=== PATIENT | male | born 1940 | race Caucasian/White ===

== ENCOUNTER → 2023-08-08 07:01 | Outpatient (REF) | payer MEDICARE, OTHER, SELFPAY ==
[2023-08-08 09:17] LABS: ALT (SGPT) 36 U/L (0-50); AST (SGOT) 35 U/L (17-59); Albumin 4.3 g/dl (3.5-5.0); Alkaline Phosphatase 66 U/L (38-126); Blood Urea Nitrogen 25 mg/dl (9-20); Calcium 10.4 mg/dl (8.4-10.2); Carbon Dioxide 28 mmol/L (22-30); Chloride 101 mmol/L (98-107); Glucose 99 mg/dl (70-99); HDL Cholesterol 54 mg/dl; LDL Cholesterol, Calculated 57 mg/dl; Potassium 4.4 mmol/L (3.5-5.1); Sodium 139 mmol/L (135-145); Total Bilirubin 0.7 mg/dl (0.2-1.3); Total Cholesterol 139 mg/dl (50-199); Total Protein 6.8 g/dl (6.3-8.2); Triglyceride 140 mg/dl (10-149); Very Low Density Lipoprotein 28 mg/dl (0-30); eGFR > 60.00
[2023-08-08 09:38] LABS: Glycohemoglobin (HgbA1c) 5.9 % (4.0-5.6)
[2023-08-08 09:41] LABS: PSA, Total - Diagnostic 1.56 ng/ml (0.0-4.0)
== END ==
LOC: HWLAB 07:01
PROVIDERS: ATTENDING PHYSICIAN Internal Medicine
DX: E78.5 Hyperlipidemia, unspecified (principal); R73.01 Impaired fasting glucose; Z85.46 Personal history of malignant neoplasm of prostate
CPT/HCPCS: 36415; 80053; 80061; 83036; 84153

== ENCOUNTER → 2023-09-04 09:06 | Outpatient (REF) | payer MEDICARE, OTHER, SELFPAY ==
[2023-09-04 12:23] LABS: Urine Albumin Negative (Neg - Trace); Urine Bilirubin Negative (Negative); Urine Character Clear (Clear); Urine Color Yellow; Urine Glucose Negative (Negative); Urine Ketone Negative (Negative); Urine Leukocyte Negative (Negative); Urine Nitrite Negative (Negative); Urine Occult Blood Negative (Negative); Urine Urobilinogen Negative (Neg - 1+)
== END ==
LOC: HWLAB 09:06
PROVIDERS: ATTENDING PHYSICIAN Internal Medicine
DX: R41.82 Altered mental status, unspecified (principal)
CPT/HCPCS: 81003; 87086

== ENCOUNTER → 2023-10-07 11:28 | Outpatient (REF) | payer MEDICARE, OTHER, SELFPAY ==
[2023-10-07 12:56] LABS: % Basophils 0.7 % (0-2); % Eosinophils 1.2 % (0-6); % Immature Granulocytes 0.6 % (0-0.5); % Lymphocytes 18.9 % (20.5-51.1); % Monocytes 6.4 % (1.7-9.3); % Neutrophils 72.2 % (42.2-75.2); Absolute Basophils 0.1 10^3/uL (0-0.2); Absolute Eosinophils 0.1 10^3/uL (0-0.7); Absolute Lymphocytes 1.4 10^3/uL (1.2-3.4); Absolute Monocytes 0.5 10^3/uL (0.1-0.6); Absolute Neutrophils 5.2 10^3/uL (1.4-6.5); Mean Corp Hgb Conc. 33.3 g/dL (33.0-37.0); Mean Corpuscular Hgb 31.5 pg (27.0-31.0); Mean Corpuscular Volume 94.5 fL (80.0-94.0); Mean Platelet Volume 10.8 fL (7.4-10.4); Nucleated Red Blood Cells % 0 % (-); Platelet Count 209 10^3/uL (130-400); Red Blood Cell Count 4.76 10^6/uL (4.70-6.10); Red Cell Dist. Width 13.3 % (11.5-14.5); White Blood Cell Count 7.2 10^3/uL (4.8-10.8)
[2023-10-07 13:13] LABS: Urine Albumin Trace (Neg - Trace); Urine Bilirubin Negative (Negative); Urine Character Clear (Clear); Urine Color Yellow; Urine Glucose Negative (Negative); Urine Ketone Negative (Negative); Urine Leukocyte Negative (Negative); Urine Nitrite Negative (Negative); Urine Occult Blood Negative (Negative); Urine Urobilinogen Negative (Neg - 1+)
[2023-10-07 13:36] LABS: ALT (SGPT) 24 U/L (0-50); AST (SGOT) 28 U/L (17-59); Albumin 4.4 g/dl (3.5-5.0); Alkaline Phosphatase 65 U/L (38-126); Blood Urea Nitrogen 21 mg/dl (9-20); Calcium 10.2 mg/dl (8.4-10.2); Carbon Dioxide 27 mmol/L (22-30); Chloride 102 mmol/L (98-107); Glucose 141 mg/dl (70-99); Potassium 4.4 mmol/L (3.5-5.1); Sodium 137 mmol/L (135-145); Total Bilirubin 0.7 mg/dl (0.2-1.3); Total Protein 6.5 g/dl (6.3-8.2); eGFR > 60.00
== END ==
LOC: OLABPATH 11:28
PROVIDERS: ATTENDING PHYSICIAN Internal Medicine
DX: F03.90 Unspecified dementia, unspecified severity, without behavioral disturbance, psychotic disturbance, mood disturbance, and anxiety (principal)
CPT/HCPCS: 36415; 80053; 81003; 85025

== ENCOUNTER → 2024-05-11 11:31 | Outpatient (REF) | payer MEDICARE, SELFPAY ==
[2024-05-12 12:21] LABS: Urine Albumin 1+ (Neg - Trace); Urine Bilirubin Negative (Negative); Urine Character Clear (Clear); Urine Color Yellow; Urine Glucose Negative (Negative); Urine Ketone Negative (Negative); Urine Leukocyte Negative (Negative); Urine Nitrite Negative (Negative); Urine Occult Blood Negative (Negative); Urine Urobilinogen Negative (Neg - 1+)
[2024-05-12 15:09] LABS: Urine Amorphous Seen; Urine Red Blood Cell 0-2 /HPF (0-2); Urine Squamous Cell 0-2 /LPF (Few); Urine White Cell 0-2 /HPF (0-5)
== END ==
LOC: OLABPATH 11:31
PROVIDERS: ATTENDING PHYSICIAN Internal Medicine
DX: N39.0 Urinary tract infection, site not specified (principal)
CPT/HCPCS: 81003; 81015

== ENCOUNTER → 2024-05-26 11:07 | Outpatient (REF) | payer MEDICARE, SELFPAY ==
[2024-05-26 12:47] LABS: % Basophils 0.6 % (0-2); % Eosinophils 3.5 % (0-6); % Immature Granulocytes 0.5 % (0-0.5); % Monocytes 8.6 % (1.7-9.3); % Neutrophils 68.8 % (42.2-75.2); Absolute Basophils 0.1 10^3/uL (0-0.2); Absolute Eosinophils 0.3 10^3/uL (0-0.7); Absolute Lymphocytes 1.4 10^3/uL (1.2-3.4); Absolute Monocytes 0.7 10^3/uL (0.1-0.6); Absolute Neutrophils 5.5 10^3/uL (1.4-6.5); Hematocrit 47.1 % (39.0-52.0); Hemoglobin 15.3 g/dL (13.0-18.0); Mean Corp Hgb Conc. 32.5 g/dL (33.0-37.0); Mean Corpuscular Hgb 31.3 pg (27.0-31.0); Mean Corpuscular Volume 96.3 fL (80.0-94.0); Mean Platelet Volume 10.8 fL (7.4-10.4); Nucleated Red Blood Cells % 0 % (-); Platelet Count 246 10^3/uL (130-400); Red Blood Cell Count 4.89 10^6/uL (4.70-6.10); Red Cell Dist. Width 13.2 % (11.5-14.5)
[2024-05-26 12:55] LABS: ALT (SGPT) 79 U/L (0-50); AST (SGOT) 45 U/L (17-59); Albumin 3.6 g/dl (3.5-5.0); Alkaline Phosphatase 91 U/L (38-126); Blood Urea Nitrogen 21 mg/dl (9-20); Calcium 9.1 mg/dl (8.4-10.2); Carbon Dioxide 30 mmol/L (22-30); Chloride 105 mmol/L (98-107); Glucose 108 mg/dl (70-99); Sodium 140 mmol/L (135-145); Total Bilirubin 0.7 mg/dl (0.2-1.3); Total Protein 6.2 g/dl (6.3-8.2); eGFR > 60.00
[2024-05-26 13:24] LABS: TSH 2.16 uIU/ml (0.47-4.68)
== END ==
LOC: OLABPATH 11:07
PROVIDERS: ATTENDING PHYSICIAN Internal Medicine
DX: R79.9 Abnormal finding of blood chemistry, unspecified (principal); Z13.220 Encounter for screening for lipoid disorders; R94.6 Abnormal results of thyroid function studies
CPT/HCPCS: 36415; 80053; 84443; 85025

== ENCOUNTER 2024-07-06 07:54 | Emergency (ER) | payer MEDICARE, SELFPAY ==
[2024-07-06 08:00] VITALS: BP 133/88
--- NOTE | 2024-07-06 08:04 | ED.GENMED ---
History of Present Illness
General
Chief Complaint: Fall
Time Seen by Provider: 07/06/24 07:56
History of Present Illness
History of Present Illness:
83-year-old male with history of dementia, hypertension, and hyperlipidemia presents the emergency department for evaluation after unwitnessed fall at his memory care unit. Arrives with a minor laceration to the left eyebrow. He denies complaints
at this time. Specifically denies headache or neck pain. States he tripped and fell however dementia does limit the validity of history. He is not on anticoagulants or antiplatelets per MAR provided by facility
Past History
Past History
ED Past Medical History: None
ED Past Surgical History: None
Social History
Tobacco: Non-smoker
Alcohol: None
Drug: None
Living: with family
Review of Systems
Review of Systems
Allergies reviewed?: Yes
All Other Systems: ROS reviewed and negative except as documented in HPI and ROS
Phy Exam
Physical Exam
Physical Exam:
GEN: Well appearing, NAD, WDWN
Eyes: 1 cm linear laceration to left lateral eyebrow, no associated cephalohematoma; PERRLA, EOMs intact
HENT: NCAT, oral mucosa moist; no midline cervical spine tenderness
Lungs: CTAB, no wheezes, rales, rhonchi, normal chest wall excursion
Cardiac: RRR, no M/R/G, no peripheral edema. Radial pulses 2+ bilat
Neuro: Alert and oriented x 2, moves all extremities freely, follows commands, cranial nerves II through XII grossly intact
MSK: No gross deformity or ecchymosis. No pelvic tenderness or crepitus, no shortening or external rotation of the lower extremities
Skin: No rashes, petechiae. Normal color, no pallor or jaundice.
Psych: Calm, cooperative, proper hygiene
Course
Orders/Labs/Results
Orders:
Orders
07/06/24 07:56
Electrocardiogram (*1) Urgent
Reason for Study: Bradycardia / Tachycardia
CT Cervical Spine W/o Iv Contr Urgent
Comment:
Reason For Exam: fall, head/neck injury
07/06/24 07:57
CT Head W/o Iv Contrast Urgent
Comment:
Reason For Exam: fall head injury
EKG- Treatment ONCE
Vital Signs
Initial and Last Documented VS:
Initial Vital Signs
Temp Pulse Resp BP Pulse Ox
97.4 F 52 18 133/88 98
07/06/24 08:00 07/06/24 08:00 07/06/24 08:00 07/06/24 08:00 07/06/24 08:00
Last Documented Vital Signs
Temp Pulse Resp BP Pulse Ox
97.4 F 48 17 133/88 98
07/06/24 08:00 07/06/24 10:30 07/06/24 10:30 07/06/24 08:00 07/06/24 08:00
MDM/Problems Addressed
MDM/Problems Addressed:
Imaging without acute abnormality. Patient was made aware of his thyroid abnormality on CT scan that will require nonemergent outpatient follow-up. This was clearly documented on his paperwork for follow-up purposes. Wound was closed with glue
*Critical Care Note
Total Time (30-74mins, 75-104mins- exclusive of procedures): Not Applicable
ED Attending Note
-
Portions of this chart may have been created with voice recognition software.� Occasional wrong word or��sound alike� substitutions may have occurred due to the inherent limitations of voice recognition software.
Discharge Plan
Departure
Patient Disposition: Home (Routine Discharge)
Date of Disposition: 07/06/24
Time of Disposition: 08:47
Patient with high blood pressure during this ER visit?: No
Discharge Problem:
Fall, Eyebrow laceration
Instructions: Laceration Repair With Glue (DC)
Prescriptions:
No Action
multivitamin [Daily Multiple] 1 EACH tablet
1 ea PO DAILY
atorvastatin 80 MG tablet
80 mg PO QPM
aspirin 325 MG tablet
325 mg PO DAILY
valsartan-hydrochlorothiazide [Diovan HCT] 1 EACH tablet
2 ea PO DAILY
ascorbic acid (vitamin C) [Vitamin C] 500 MG tablet
1,000 mg PO DAILY
ranitidine HCl 150 MG tablet
150 mg PO QPM
calcium polycarbophil [Fiber-Tabs] 625 MG tablet
1,250 mg PO QPM
loratadine 10 MG tablet
10 mg PO DAILY
ezetimibe 10 MG tablet
10 mg PO DAILY
tad Moore B.animalis 1 EACH capsule
2 ea PO DAILY
Referrals:
Steven Asif DO [Family Provider] -
Activity Restrictions/Additional Instructions:
CT scans were normal with the exception of the below finding on the neck CT:
'11 mm hypodense left thyroid lesion likely a benign nodule. New.Nonurgent dedicated thyroid ultrasound recommended.'
Interventions
Interventions:
*Risk Screen - Suicide Last Done: 07/06/24 08:02
*General Assessment Last Done: 07/06/24 08:02
*Neglect/Abuse Screening Last Done: 07/06/24 08:02
*ED- Fall Risk Assessment Last Done: 07/06/24 11:19
*ED COVID-19 Vaccine History Last Done: 07/06/24 08:02
*Nursing Disposition Last Done: 07/06/24 11:19
ED- Neurological Assessment Last Done: 07/06/24 08:05
ED-Skin Assessment Last Done: 07/06/24 08:04
Discharge Date and Time
Discharge Date/Time: 07/06/24 11:20
Print Language: [place]
== END 2024-07-06 11:20 | disposition home or self-care (01) ==
LOC: EMR 07:54
PROVIDERS: EMERGENCY PHYSICIAN Student in an Organized Health Care Education/Training Program; FAMILY PHYSICIAN Internal Medicine
DX: S01.112A Laceration without foreign body of left eyelid and periocular area, initial encounter (principal); W19.XXXA Unspecified fall, initial encounter; Y92.89 Other specified places as the place of occurrence of the external cause; F03.90 Unspecified dementia, unspecified severity, without behavioral disturbance, psychotic disturbance, mood disturbance, and anxiety; I10 Essential (primary) hypertension; E78.5 Hyperlipidemia, unspecified; Z91.048 Other nonmedicinal substance allergy status
CPT/HCPCS: 99284; 70450; 72125; 93005

== ENCOUNTER → 2024-10-07 16:11 | Outpatient (REF) | payer MEDICARE, SELFPAY ==
[2024-10-07 17:19] LABS: Urine Character Clear (Clear)
[2024-10-07 18:09] LABS: Urine Squamous Cell 0-2 /LPF (Few)
[2024-10-07 18:10] LABS: Urine Red Blood Cell 0-2 /HPF (0-2); Urine White Cell 0-2 /HPF (0-5)
== END ==
LOC: OLABPATH 16:11
PROVIDERS: ATTENDING PHYSICIAN Internal Medicine
DX: I10 Essential (primary) hypertension (principal); I25.10 Atherosclerotic heart disease of native coronary artery without angina pectoris; R73.01 Impaired fasting glucose; Z90.5 Acquired absence of kidney
CPT/HCPCS: 81003; 81015

== ENCOUNTER 2024-11-26 19:26 | Emergency (ER) | payer MEDICARE, SELFPAY ==
[2024-11-26 19:32] VITALS: BP 150/83
[2024-11-26 19:49] VITALS: BMI 26.6
--- NOTE | 2024-11-26 19:53 | EDRN ---
Evelyn Tinoco PA in room w/pt at this time.
--- NOTE | 2024-11-26 21:27 | ED.GENMED ---
History of Present Illness
General
Chief Complaint: Musculo-Skeletal Complaint
Source: spouse and family
Time Seen by Provider: 11/26/24 19:48
History of Present Illness
History of Present Illness:
84-year-old male with past medical history of dementia, hypertension, hyperlipidemia, previous PA, previous renal cancer status post left nephrectomy presenting to the emergency department from his memory care unit at the [facility] for
evaluation after having an x-ray done which was concerning for a 'metatarsal fracture'. History was obtained by patient's family as patient is unable to provide any information secondary to his history of dementia. Family states that they were
unaware of any fall or injury to his left foot although they do note patient has been complaining of pain to the distal foot mainly around the first metatarsal. They note it is erythematous and edematous.
Past History
Past History
ED Past Medical History: Cancer, HTN, Hypercholesterolemia and PA
ED Past Surgical History: Cardiac and Other
Social History
Tobacco: Non-smoker
Alcohol: None
Drug: None
Personal:
Living: residential
Review of Systems
Review of Systems
All Other Systems: ROS reviewed and negative except as documented in HPI and ROS
Phy Exam
Physical Exam
Physical Exam:
GENERAL: Alert , in no apparent distress
EYE: conjunctiva clear
Head: Normocephalic atraumatic
NECK: Supple,
ENT: mmm.
LUNGS: no acute respiratory distress
NEUROLOGICAL: Alert and oriented
SKIN: Warm and dry, there is erythema and edema over the distal metatarsals, more concentrated around the first MTP joint with tenderness directly over this area. There is no breaks in the skin
MUSCULOSKELETAL: well perfused. Easily palpable pedal pulses bilaterally. Cap refill less than 2 seconds. There is no tenderness over the proximal or mid foot. Calcaneal tendon intact. No tenderness over the medial or lateral malleoli
PSYCH: Normal and appropriate interaction.
Scores
Heart Failure Risk
Heart Failure Risk Score: Not Applicable
Heart Score for Chest Pain Patients
STEMI patient?: Not applicable
Withdrawal Assessment of Alcohol
Withdrawal Assessment Completed?: Not applicable
Course
Orders/Labs/Results
Orders:
Orders
11/26/24 19:57
CR Ankle - Left Min 3 Views Urgent
Comment:
Reason For Exam: edema, pain
CR Foot - Left Min 3 Views Urgent
Comment:
Reason For Exam: pain over first metatarsal, edema
Vital Signs
Initial and Last Documented VS:
Initial Vital Signs
Temp Pulse Resp BP Pulse Ox
98.5 F 60 16 150/83 99
11/26/24 19:32 11/26/24 19:32 11/26/24 19:32 11/26/24 19:32 11/26/24 19:32
Last Documented Vital Signs
Temp Pulse Resp BP Pulse Ox
98.5 F 60 16 150/83 99
11/26/24 19:32 11/26/24 19:32 11/26/24 19:32 11/26/24 19:32 11/26/24 21:28
MDM/Problems Addressed
Differential Diagnosis Includes:
Gout
Fracture
Sprain
Contusion
Cellulitis
DVT considered however edema is only over distal foot making this diagnosis unlikely
MDM/Problems Addressed:
84-year-old male presenting to the emergency department for evaluation of left foot pain and swelling. There is no known trauma to the area, patient unable to provide this information due to his history of dementia. Unfortunately family does not
have the x-rays that were [facility] today so will reobtain x-ray here to further assess. Patient is otherwise resting comfortably
*Radiology
Radiology exam reviewed: preliminary read by ED provider (Questionable avulsion injury off of the navicular bone, possibly subacute. No acute fracture seen)
*Pulse Oximetry
SaO2: 99
Oxygen Mode of Delivery: Room air
Patient hypoxic: no
*Critical Care Note
Total Time (30-74mins, 75-104mins- exclusive of procedures): Not Applicable
Patient Management
Discussion with other providers: longterm staff
Escalation/DeEscalation of care consider admission/obs:
To the residential staff who states that they were concerned for a possible fifth metatarsal fracture. I reviewed patient x-rays from previous which in 2007 showed a possible subacute 5th metatarsal fracture, todays XR showed it healed. There was
a ? avulsive injury off navicular bone but patient does not have pain in this area. Based off location of patient's pain, swelling and erythema I suspect gout is a very likely diagnosis. Can take anti-inflammatories/Tylenol as needed for pain.
Patient stable for transportation back to his residential.
ED Attending Note
-
Portions of this chart may have been created with voice recognition software.� Occasional wrong word or��sound alike� substitutions may have occurred due to the inherent limitations of voice recognition software.
Discharge Plan
Departure
Patient Disposition: Home (Routine Discharge)
Date of Disposition: 11/26/24
Time of Disposition: 21:27
Patient with high blood pressure during this ER visit?: Yes
Discharge Problem:
Foot pain, left
Instructions: Foot sprain - ED (DC)
Prescriptions:
No Action
multivitamin [Daily Multiple] 1 EACH tablet
1 ea PO DAILY
atorvastatin 80 MG tablet
80 mg PO QPM
aspirin 325 MG tablet
325 mg PO DAILY
valsartan-hydrochlorothiazide [Diovan HCT] 1 EACH tablet
2 ea PO DAILY
ascorbic acid (vitamin C) [Vitamin C] 500 MG tablet
1,000 mg PO DAILY
ranitidine HCl 150 MG tablet
150 mg PO QPM
calcium polycarbophil [Fiber-Tabs] 625 MG tablet
1,250 mg PO QPM
loratadine 10 MG tablet
10 mg PO DAILY
ezetimibe 10 MG tablet
10 mg PO DAILY
L.acidmiguel,paracasei,B.animalis 1 EACH capsule
2 ea PO DAILY
Referrals:
Steven Asif DO [Family Provider]
Interventions
Interventions:
*Risk Screen - Suicide Last Done: 11/26/24 19:32
*General Assessment Last Done: 11/26/24 19:32
*Neglect/Abuse Screening Last Done: 11/26/24 19:47
*ED- Fall Risk Assessment Last Done: 11/26/24 19:32
*ED COVID-19 Vaccine History Last Done: 11/26/24 19:32
ED-Musculoskeletal Assessment Last Done: 11/26/24 21:15
Discharge Date and Time
Print Language: KHMER
[2024-11-26 21:49] VITALS: BP 180/91
== END 2024-11-26 21:57 | disposition home or self-care (01) ==
LOC: EMR 19:26
PROVIDERS: EMERGENCY PHYSICIAN Student in an Organized Health Care Education/Training Program; FAMILY PHYSICIAN Internal Medicine
DX: M79.672 Pain in left foot (principal); I10 Essential (primary) hypertension; E78.00 Pure hypercholesterolemia, unspecified; F03.90 Unspecified dementia, unspecified severity, without behavioral disturbance, psychotic disturbance, mood disturbance, and anxiety; I25.2 Old myocardial infarction
CPT/HCPCS: 99283; 73610; 73630